=== PATIENT | male | born 2000 ===

== ENCOUNTER 2020-04-04 19:50 | Emergency (ER) | payer OTHER ==
[~2020-04-04] VITALS: Ht 182.9 cm; Wt 104.5 kg
[2020-04-04 19:53] VITALS: Ht 182.9 cm; Wt 104.5 kg
[2020-04-04] MEDS ORDERED: HYDROCODON-ACE1 EAC7 PO (21:14)
[2020-04-04 21:24] VITALS: BP 156/81
== END 2020-04-04 21:25 | disposition home or self-care (01) ==
LOC: D.ER 19:50
DX: S16.1XXA Strain of muscle, fascia and tendon at neck level, initial encounter (principal); S40.022A Contusion of left upper arm, initial encounter; V89.2XXA Person injured in unspecified motor-vehicle accident, traffic, initial encounter; Y93.9 Activity, unspecified; Y92.9 Unspecified place or not applicable